=== PATIENT | male | born 1985 | race Caucasian/White ===

== ENCOUNTER 2020-12-15 06:18 | Emergency (ER) | payer OTHER ==
[2020-12-15 07:03] VITALS: BMI 28.5
[2020-12-15 08:41] VITALS: BP 109/76; PULSE 86; TEMP 98.6
== END 2020-12-15 08:43 | disposition home or self-care (01) ==
LOC: JER 06:18
DX: J06.9 Acute upper respiratory infection, unspecified (principal); R05 Cough; R09.81 Nasal congestion; Z11.52 Encounter for screening for COVID-19
CPT/HCPCS: 71046-TC-FY; 99284-25; C9803; U0003; U0005